=== PATIENT | male | born 1970 | race Caucasian/White ===

== ENCOUNTER 2016-04-12 18:43 | Emergency (ER) | payer OTHER, BC ==
[~2016-04-12] VITALS: Ht 182.9 cm; Wt 129.0 kg
[~2016-04-12 18:43] MED LIST: AMLODIPINE BESY10 MG PO; Baciguent Ophth Oint RIGHT EYE; CATAPRES0.1 MG PO; CATAPRES0.2 MG PO; CELEBREX200 MG PO; Catapres PO; DEPAKOTE250 MG PO; DESYREL 150 MG150 MG PO; Depakote PO; HYDROCHLOROTHIA25 MG PO; Hydrodiuril,Oretic,E PO; Lopid PO; MULTIVITAMIN1 EAC2 PO; Motrin PO; Potassium Gluconate PO; SEROQUEL12.5 MG PO; TEGRETOL200 MG PO; THERAGRAN1 TABLET PO; Tylenol Regular Stre PO; ZOLOFT100 MG; ZOLOFT100 MG PO
[2016-04-12 19:17] LABS: POINT-OF-CARE METER ID UU13113778
[2016-04-12 19:26] LABS: HEMATOCRIT 41.4 % (38.0-50.0); MCH 29.3 PG (29.0-34.0); MCHC 35.5 G/DL (30.0-36.0); MCV 82.6 FL (86-99); MEAN PLAT.VOLUME 9.2 uM^3 (9.0-12.4); PLATELET COUNT 249 K/uL (156-360); RBC DIS.WIDTH-CV 13.8 % (11.8-14.6); RBC DIS.WIDTH-SD 40.1 % (39-53); RED BLOOD COUNT 5.01 M/uL (4.00-5.50); WHITE BLOOD COUNT 9.9 K/uL (4.1-10.2)
[2016-04-12 19:40] LABS: CHLORIDE 102 mEq/L (99-109); POTASSIUM 3.8 mEq/L (3.7-5.4); SODIUM 144 mEq/L (136-147)
[2016-04-12 19:42] LABS: GLUCOSE 94 mg/dL (70-99)
[2016-04-12 19:43] LABS: ANION GAP 11 MEQ/L (2-14)
[2016-04-12 19:46] LABS: GFR ESTIMATE (CALCULATED) > 59 mL/min/
[2016-04-12 19:47] LABS: UREA NITROGEN (BUN) 17 mg/dL (9-23)
[2016-04-12 20:02] LABS: ADD MIUA? YES; BILIRUBIN NEGATIVE; BLOOD NEGATIVE; COLOR AMBER ((YELLOW)); GLUCOSE (STRIP) NEGATIVE; KETONES NEGATIVE; LEUKOCYTES NEGATIVE; NITRITE NEGATIVE; PROTEIN (STRIP) NEGATIVE; SPECIFIC GRAVITY 1.023 (1.000-1.030); UROBILINOGEN 0.2 MG/DL (0.2-1.0)
[2016-04-12 20:04] LABS: BACTERIA RARE /HPF; EPITHELIAL CELLS RARE /HPF; MUCUS 2+ /LPF; RED BLOOD CELLS 0-5 /HPF (0-5); UCUL ADDED? NO; WHITE BLOOD CELLS 0-5 /HPF (0-5)
[2016-04-12 22:16] VITALS: BP 128/55
== END 2016-04-12 22:28 | disposition home or self-care (01) ==
LOC: EME 18:43
DX: S06.0X0A Concussion without loss of consciousness, initial encounter (principal); S00.81XA Abrasion of other part of head, initial encounter; W19.XXXA Unspecified fall, initial encounter; Y92.009 Unspecified place in unspecified non-institutional (private) residence as the place of occurrence of the external cause; I10 Essential (primary) hypertension; Z87.891 Personal history of nicotine dependence
CPT/HCPCS: 70450; 71020; 72125; 80048; 81003; 82948; 85027; 93005; 99281; 99284